=== PATIENT | female | born 1965 | race Caucasian/White ===

== ENCOUNTER → 2021-12-02 | Outpatient (CLI) | payer OTHER | LOC: KOH-I 14:22 | DX: M25.571 Pain in right ankle and joints of right foot (principal); M25.572 Pain in left ankle and joints of left foot; M79.672 Pain in left foot; M79.671 Pain in right foot; M19.079 Primary osteoarthritis, unspecified ankle and foot | CPT/HCPCS: 73610; 73630 ==

== ENCOUNTER → 2022-03-10 | Outpatient (CLI) | payer OTHER | LOC: KOH-I 11:15 | DX: M25.571 Pain in right ankle and joints of right foot (principal); M25.471 Effusion, right ankle; S83.8X1A Sprain of other specified parts of right knee, initial encounter | CPT/HCPCS: 73721 ==